=== PATIENT | female | born 1985 | race Caucasian/White ===

== ENCOUNTER 2017-02-17 17:27 | Emergency (ER) | payer OTHER, BC ==
[~2017-02-17] VITALS: Ht 167.6 cm; Wt 83.5 kg
[2017-02-17 17:28] VITALS: BP 143/84
[2017-02-17] MEDS ORDERED: CYCL5TA PO (17:34)
[2017-02-17] MEDS ORDERED: PRED20TA PO (17:34)
[2017-02-17] MEDS ORDERED: NORCOTAB PO (17:51)
[2017-02-17] MEDS ORDERED: ROBA500T PO (17:51)
[2017-02-17] MEDS ORDERED: METHOCARBAMOL 500 MG TAB PO ONE (18:00)
[2017-02-17] MEDS ORDERED: NORCO, ANEXSIA 5/325MG TABLET (HYDROcodone/ACETAMINOPHEN) PO ONE (18:00)
[2017-02-17] MEDS ORDERED: IBUPROFEN 800 MG TAB PO ONE (18:00)
== END 2017-02-17 18:10 | disposition home or self-care (01) ==
LOC: M ED 18:03
DX: M54.31 Sciatica, right side (principal); V40.5XXA Car driver injured in collision with pedestrian or animal in traffic accident, initial encounter; Y92.410 Unspecified street and highway as the place of occurrence of the external cause; Y93.89 Activity, other specified; Y99.8 Other external cause status; Z79.899 Other long term (current) drug therapy